=== PATIENT | female | born 2000 | race American Indian/Alaskan Native ===

== ENCOUNTER 2022-03-23 00:42 | Emergency (ER) | payer SELFPAY ==
--- NOTE | 2022-03-23 06:45 | Emergency Department Report ---
ED General Adult HPI - General Chief complaint: Eye Problems Stated complaint: EYE Time Seen by Provider: 03/23/22 06:40 Source: patient Mode of arrival: Ambulatory Limitations: No Limitations - History of Present Illness Initial comments: Is a 21-year-old female who presents for right redness and itching times this a.m. States she woke up about this. She states clear to yellowish drainage. Been no fever no chills no ear or throat pain. Patient does have seasonal allergies. Denies other sick contacts. Symptoms are exacerbated by movement. Symptoms are relieved by nothing tried. Pain is described at 4/10 burning patient denies relieving factors. There is no decrease in vision. No blurred vision. Severity scale (0 -10): 5 - Related Data Previous Rx's Medication Instructions Recorded Last Taken Type Ketotifen Fumarate [Zaditor] 2 drop OP BID 7 Days #5 ml 03/23/22 Unknown Rx Polymyxin B Sulf/Trimethoprim 2 drop OP Q3H #10 ml 03/23/22 Unknown Rx [Polytrim Eye Drops] Allergies Allergy/AdvReac Type Severity Reaction Status Date / Time No Known Allergies Allergy Unverified 03/23/22 01:50 ED Review of Systems ROS: Stated complaint: EYE Other details as noted in HPI Constitutional: denies: chills, fever Eyes: eye pain, eye discharge (Redness burning clear yellow). denies: vision change ENT: denies: ear pain, throat pain Respiratory: denies: cough, shortness of breath, wheezing Cardiovascular: denies: chest pain, palpitations Endocrine: no symptoms reported Gastrointestinal: denies: abdominal pain, nausea, diarrhea Genitourinary: denies: urgency, dysuria, discharge Musculoskeletal: denies: back pain, joint swelling, arthralgia Skin: denies: rash, lesions Neurological: denies: headache, weakness, paresthesias Psychiatric: denies: anxiety, depression Hematological/Lymphatic: denies: easy bleeding, easy bruising ED Past Medical Hx - Medications Home Medications: Home Medications Medication Instructions Recorded Confirmed Last Taken Type Ketotifen Fumarate [Zaditor] 2 drop OP BID 7 Days #5 ml 03/23/22 Unknown Rx Polymyxin B Sulf/Trimethoprim 2 drop OP Q3H #10 ml 03/23/22 Unknown Rx [Polytrim Eye Drops] ED Physical Exam - General Limitations: No Limitations General appearance: alert, in no apparent distress - Head Head exam: Present: normocephalic, normal inspection - Eye Eye exam: Present: PERRL, EOMI, conjunctival injection. Absent: nystagmus Pupils: Present: normal accommodation - ENT ENT exam: Present: normal orophraynx, mucous membranes moist, TM's normal bilaterally, normal external ear exam - Neck Neck exam: Present: normal inspection, full ROM. Absent: tenderness, lymphadenopathy - Respiratory Respiratory exam: Present: normal lung sounds bilaterally. Absent: respiratory distress, wheezes, stridor, chest wall tenderness - Cardiovascular Cardiovascular Exam: Present: regular rate, normal rhythm, normal heart sounds. Absent: systolic murmur, diastolic murmur, rubs, gallop - GI/Abdominal GI/Abdominal exam: Present: soft, normal bowel sounds. Absent: distended, tenderness - Extremities Exam Extremities exam: Present: normal inspection, full ROM, normal capillary refill - Back Exam Back exam: Present: normal inspection, full ROM. Absent: tenderness - Neurological Exam Neurological exam: Present: alert, oriented X3, CN II-XII intact - Psychiatric Psychiatric exam: Present: normal affect, normal mood - Skin Skin exam: Present: warm, dry, intact, normal color. Absent: rash ED Course Vital Signs 03/23/22 01:49 Temperature 98.2 F Pulse Rate 73 Respiratory 16 Rate Blood Pressure 121/68 [Right] O2 Sat by Pulse 98 Oximetry ED Medical Decision Making - Medical Decision Making The straight for conjunctivitis plan treat for conjunctivitis. Follow-up with ophthalmology today. Return to emergency department should symptoms worsen. Patient verbalized agreement and understanding with discharge plan. Patient DC'd home in stable condition at this time. Critical care attestation.: If time is entered above; I have spent that time in minutes in the direct care of this critically ill patient, excluding procedure time. ED Disposition Clinical Impression: Conjunctivitis Qualifiers: Conjunctivitis type: acute Acute conjunctivitis type: bacterial Laterality: left Qualified Code(s): H10.32 - Unspecified acute conjunctivitis, left eye Disposition: HOME / SELF CARE / HOMELESS Is pt being admited?: No Does the pt Need Aspirin: No Condition: Stable Instructions: How to Use Eye Drops and Eye Ointments, Bacterial Conjunctivitis, Adult, [id number] Additional Instructions: Take medications as prescribed, follow-up with ophthalmology eye doctor as directed. Return to emergency department should symptoms worsen. Prescriptions: Polymyxin B Sulf/Trimethoprim [Polytrim Eye Drops] 2 drop OP Q3H #10 ml Ketotifen Fumarate [Zaditor] 2 drop OP BID 7 Days #5 ml Referrals: PAULO SINGH MD [Staff Physician] - 2-3 Days Forms: Work/School Release Form(ED) Time of Disposition: 06:49
[2022-03-23 06:58] VITALS: BP 127/71
== END 2022-03-23 06:58 | disposition home or self-care (01) ==
LOC: ED 00:42
DX: H10.9 Unspecified conjunctivitis (principal)
CPT/HCPCS: 99282